=== PATIENT | female | born 1995 | race Caucasian/White ===

== ENCOUNTER 2024-09-06 16:55 | Emergency (ER) | payer MEDICAID, OTHER ==
[~2024-09-06] VITALS: Ht 170.2 cm; Wt 58.1 kg
[2024-09-06 17:48] VITALS: BP 116/71; TEMP 98.7; O2SAT 99
== END 2024-09-06 17:49 | disposition home or self-care (01) ==
LOC: ER 17:03
DX: S09.90XA Unspecified injury of head, initial encounter (principal); W22.8XXA Striking against or struck by other objects, initial encounter; Y93.89 Activity, other specified; Y92.89 Other specified places as the place of occurrence of the external cause; Y99.8 Other external cause status